=== PATIENT | male | born 1975 | race Caucasian/White ===

== ENCOUNTER 2018-12-27 16:08 | Emergency (ER) | payer MEDICAID, OTHER ==
[2018-12-27 16:51] VITALS: BP 147/81; PULSE 125; RESP 16; TEMP 99.3; O2SAT 96
[2018-12-27] MEDS ORDERED: Tetanus/Diphtheria Toxoids 0.5 ml Syringe IM ONE ×2 (17:20→17:41)
--- NOTE | 2018-12-27 17:23 | C.PDOC ---
History Of Present Illness 43 year old male presents to ED for evaluation of right great toe laceration that occurred 2 days ago. Patient states that he was going down the stairs Thursday morning and slipped and hit the bottom of the step with his toe. Patient is not up to date with his tetanus vaccine. Patient denies any other injuries, sensory changes, and fever. Time Seen by Provider: 12/27/18 16:58 Chief Complaint (Nursing): Lower Extremity Problem/Injury History Per: Patient History/Exam Limitations: no limitations Onset/Duration Of Symptoms: Days (2) Current Symptoms Are (Timing): Still Present - Ankle/Foot Description Of Injury: Struck Against Object Past Medical History Reviewed: Historical Data, Nursing Documentation, Vital Signs Vital Signs: Last Vital Signs Temp 99.3 F 12/27/18 16:48 Pulse 125 H 12/27/18 16:48 Resp 16 12/27/18 16:48 BP 147/81 12/27/18 16:48 Pulse Ox 96 12/27/18 16:48 - Medical History PMH: Asthma Surgical History: No Surg Hx Family History: States: Unknown Family Hx - Social History Hx Alcohol Use: No Hx Substance Use: No - Immunization History Hx Tetanus Toxoid Vaccination: No Hx Influenza Vaccination: No Hx Pneumococcal Vaccination: No Review Of Systems Constitutional: Negative for: Fever, Chills, Weakness Musculoskeletal: Positive for: Foot Pain (laceration to the right great toe) Neurological: Negative for: Weakness, Numbness Physical Exam - Physical Exam Appears: Non-toxic, No Acute Distress, Other (morbidly obese) Skin: Normal Color, Warm, Dry Head: Atraumatic, Normacephalic Neck: Normal ROM, Supple Chest: Symmetrical, No Deformity Respiratory: No Accessory Muscle Use Extremity: Normal ROM, Capillary Refill (<2 seconds), Other (dirt between the webbing of the toes, 1.5 cm laceration on the plantar aspect of the right great toe) Neurological/Psych: Oriented x3, Normal Speech, Normal Cognition ED Course And Treatment O2 Sat by Pulse Oximetry: 96 (in RA) Progress Note: Patient given Tylenol, Kelfex, and tetanus vaccine. Patient given prescription for antibiotics and discharged home. Re-evaluation. Patient feels better. Discussed plan with patient who expresses understanding. All questions answered and there is agreement with the plan to discharge home with instructions. Patient stable for discharge. Return if symptoms persist or worsen. Disposition Counseled Patient/Family Regarding: Diagnosis, Need For Followup, Rx Given - Disposition Referrals: [facility] [Outside] Disposition: HOME/ ROUTINE Disposition Time: 17:45 Condition: STABLE Additional Instructions: FOLLOW UP IN THE MEDICAL CLINIC IN 1-2 DAYS USE MEDICATIONS DIRECTED RETURN TO ER IF SYMPTOMS WORSEN, SUCH REDNESS, PAIN, FEVER, SWELLING Prescriptions: Acetaminophen [Tylenol 325mg tab] 650 mg PO Q6 PRN #30 tab PRN Reason: pain/fever Bacitracin OINT 1 applic TOP BID #1 tube Cephalexin [Keflex] 500 mg PO BID #14 capsule Instructions: Laceration Infection (DC) Forms: [employer] (Belarusian) Print Language: FRISIAN - POA Present On Arrival: Falls Or Trauma - Clinical Impression Clinical Impression: Laceration of toe, right, Cellulitis, toe - Scribe Statement The provider has reviewed the documentation as recorded by the Scribe (Miguelina Cullen) All medical record entries made by the Scribe were at my direction and personally dictated by me. I have reviewed the chart and agree that the record accurately reflects my personal performance of the history, physical exam, medical decision making, and the department course for this patient. I have also personally directed, reviewed, and agree with the discharge instructions and disposition.
== END 2018-12-27 17:52 | disposition home or self-care (01) ==
LOC: C.ER 16:08
DX: S91.111A Laceration without foreign body of right great toe without damage to nail, initial encounter (principal); L03.031 Cellulitis of right toe; W22.8XXA Striking against or struck by other objects, initial encounter